=== PATIENT | male | born 1955 | race Caucasian/White ===

== ENCOUNTER 2021-02-27 07:57 | Emergency (ER) | payer OTHER ==
[~2021-02-27] VITALS: Ht 180.3 cm; Wt 106.8 kg
[2021-02-27 08:09] VITALS: TEMP 98.4
[2021-02-27 08:30] LABS: MEAN CELL VOLUME 91 fl (80.0-100.0); MEAN CORPUSCULAR HGB CONC 34 g/dl (33.0-37.0); MEAN PLATELET VOLUME 9.6 fl (7.4-10.4); PLATELET COUNT 201 K/mm3 (130-400); RED BLOOD COUNT 6.01 M/mm3 (4.20-5.60); REDCELL DISTRIBUTION WIDTH-CV 12.4 % (11.5-14.5)
[2021-02-27 08:41] LABS: INR 1.8 (0.8-3.0); PROTHROMBIN TIME 20.6 SECONDS (9.7-12.8)
[2021-02-27 08:44] LABS: ALBUMIN 4.5 gm/dL (3.5-5.0); BILIRUBIN,TOTAL 0.5 mg/dL (0.0-1.0); C-REACTIVE PROTEIN 1.2 mg/dL (0.0-0.9); CALCIUM 9.5 mg/dL (8.4-10.2); CREATININE, serum 0.95 (0.66-1.25); POTASSIUM 3.7 mmol/L (3.4-5.0); TOTAL PROTEIN 8.4 gm/dL (6.4-8.2)
[2021-02-27 08:53] LABS: HEMATOCRIT 54.8 % (42.0-52.0); HEMOGLOBIN 18.7 g/dl (13.5-18.0); MEAN CORPUSCULAR HEMOGLOBIN 31 pg (27.0-31.0)
[2021-02-27 09:00] LABS: BASO % 0.7 % (0.0-2.0); EOS % 1.2 % (0-4.0); GRAN # 4.4 (1.4-6.5); GRAN % 72.4 % (42.2-75.2); LYMPH # 0.9 (1.2-3.4); LYMPH % 18.4 % (20.0-51.0); MONO # 1.6 (0.1-0.6); MONO % 6.9 % (1.7-9.3)
[2021-02-27 09:01] LABS: BASO # 0.1 (0.0-0.2)
[2021-02-27 12:45] VITALS: BP 166/134; PULSE 115
[2021-02-27] MEDS ORDERED: LOPRESSOR 550 MG/TAB PO (16:03)
[2021-02-27] MEDS ORDERED: PERCOCET 325 MG1 TAB PO (16:03)
[2021-02-27] MEDS ORDERED: AMBIEN 10MG10 MG PO (16:03)
[2021-02-27] MEDS ORDERED: LOPID 600M600 MG/TAB PO (16:04)
[2021-02-27] MEDS ORDERED: FLEXERIL5 MG PO (16:04)
[2021-02-27] MEDS ORDERED: CORDARONE200 MG/TAB PO (16:05)
[2021-02-27] MEDS ORDERED: XARELTO20 MG PO (16:05)
== END 2021-02-27 13:15 | disposition short-term general hospital (02) ==
LOC: COL.ER 07:57
PROVIDERS: Family Medicine
DX: I48.91 Unspecified atrial fibrillation (principal); I63.9 Cerebral infarction, unspecified; Z79.01 Long term (current) use of anticoagulants; I10 Essential (primary) hypertension
CPT/HCPCS: Q9967